=== PATIENT | female | born 1965 | race Two or more races ===

== ENCOUNTER 2023-06-10 06:27 | Emergency (ER) | payer SELFPAY ==
[~2023-06-10] VITALS: Ht 160 cm; Wt 77.0 kg
[2023-06-10 06:37] VITALS: BP 134/74; PULSE 86; RESP 17; O2SAT 97
== END 2023-06-10 10:15 | disposition left against medical advice (07) ==
LOC: ER 06:27 → EDBD 06:27 → ER 10:15
DX: R51.9 Headache, unspecified (principal); Z53.21 Procedure and treatment not carried out due to patient leaving prior to being seen by health care provider